=== PATIENT | female | born 1950 | race Caucasian/White ===

== ENCOUNTER 2017-07-24 12:58 | Emergency (ER) | payer MEDICAID, OTHER ==
[2017-07-24] MEDS ORDERED: Insulin Glargine,Human Rec. Analog 100 Units/ML 3 ML Pen SUBCUT ONE (13:41)
--- NOTE | 2017-07-24 14:07 | EDM.PDOC ---
<Juan Miguel Kelly - Last Filed: 07/24/17 14:02> ED HPI GENERAL MEDICAL PROBLEM - General Chief Complaint: Diabetic Complaint Stated Complaint: PT WOULD LIKE TO BE CHECK Time Seen by Provider: 07/24/17 13:45 Source of Information: Reports: Patient History Limitations: Reports: No Limitations - History of Present Illness INITIAL COMMENTS - FREE TEXT/NARRATIVE: HISTORY AND PHYSICAL: History of present illness: 66-year-old female that is a type II diabetic presents to the ER secondary to hyperglycemia. Patient is from [facility] and did not bring her diabetic medications with her on this trip to [place]. Her last dose of any type of diabetic medication was yesterday at noon when she took 10 units of Humalog. Typically she takes Humalog, Januvia, Lantus 20 units in the morning and night and also Victoza daily. She checked her blood sugars prior to coming in and they were 527. She notes a mild headache and some nausea but denies any abdominal pain, vomiting, chest, palpitations, shortness of breath, wheezing, cough. Her plan is to return to [place] tomorrow. She states that she is on Medicaid and unable to pay for any medications as prescribed to her today. Review of systems: As per history of present illness and below otherwise all systems reviewed and negative. Past medical history: As per history of present illness and as reviewed below otherwise noncontributory. Surgical history: As per history of present illness and as reviewed below otherwise noncontributory. Social history: No reported history of drug or alcohol abuse. Family history: As per history of present illness and as reviewed below otherwise noncontributory. Physical exam: HEENT: Atraumatic, normocephalic, pupils reactive, negative for conjunctival pallor or scleral icterus, mucous membranes moist, throat clear, neck supple, nontender, trachea midline. Lungs: Clear to auscultation, breath sounds equal bilaterally, chest nontender. Heart: S1S2, regular, negative for clicks, rubs, or JVD. Abdomen: Soft, nondistended, nontender. Negative for masses or hepatosplenomegaly. Negative for costovertebral tenderness. Extremities: Atraumatic, negative for cords or calf pain. Neurovascular unremarkable. Neuro: Awake, alert, oriented. Cranial nerves II through XII unremarkable. Cerebellum unremarkable. Motor and sensory unremarkable throughout. Exam nonfocal. Diagnostics: Patient declined a workup Therapeutics: The adaptive physical educator was contacted and did provide the patient with Victoza, Januvia and Humalog samples. Impression: #1. Hyperglycemia secondary to not having diabetic medications Plan: #1. Patient was given samples as noted above from the adaptive physical educator. She will return to [place], [place] tomorrow and follow-up with her primary care provider. Definitive disposition and diagnosis as appropriate pending reevaluation and review of above. Headache Pain Score (Numeric/FACES): 4 - Related Data Allergies Allergy/AdvReac Type Severity Reaction Status Date / Time amoxicillin [From Augmentin] Allergy Cannot Verified 07/24/17 13:36 Remember clavulanic acid Allergy Cannot Verified 07/24/17 13:36 [From Augmentin] Remember IV Dye Allergy Cannot Uncoded 07/24/17 13:36 Remember Past Medical History Endocrine/Metabolic History: Reports: Diabetes, Type II Social & Family History - Tobacco Use Smoking Status *Q: Never Smoker Second Hand Smoke Exposure: No - Caffeine Use Caffeine Use: Reports: Coffee - Recreational Drug Use Recreational Drug Use: No ED ROS GENERAL - Review of Systems Review Of Systems: ROS reveals no pertinent complaints other than HPI. ED EXAM GENERAL NO PERIP PULSE - Physical Exam Exam: See Below Text/Narrative:: See dictation Course - Vital Signs Last Recorded V/S: Last Vital Signs Temp 36.8 C 07/24/17 13:37 Pulse 91 07/24/17 13:37 Resp 14 07/24/17 13:37 BP 141/51 H 07/24/17 13:37 Pulse Ox 93 L 07/24/17 13:37 - Orders/Labs/Meds Meds: Medications Discontinued Medications Generic Name Dose Route Start Last Admin Trade Name Freq PRN Reason Stop Dose Admin Insulin Glargine 20 units 07/24/17 13:41 Lantus Solostar SUBCUT 07/24/17 13:42 ONETIME ONE Departure - Departure Time of Disposition: 14:10 Disposition: Home, Self-Care 01 Clinical Impression: Hyperglycemia - Discharge Information Instructions: Hyperglycemia, [id number] Referrals: PCP,None [Primary Care Provider] - Forms: ED Department Discharge Care Plan Goals: The following information is given to patients seen in the emergency department who are being discharged to home. This information is to outline your options for follow-up care. We provide all patients seen in our emergency department with a follow-up referral. The need for follow-up, as well as the timing and circumstances, are variable depending upon the specifics of your emergency department visit. If you don't have a primary care physician on staff, we will provide you with a referral. We always advise you to contact your personal physician following an emergency department visit to inform them of the circumstance of the visit and for follow-up with them and/or the need for any referrals to a consulting specialist. The emergency department will also refer you to a specialist when appropriate. This referral assures that you have the opportunity for follow-up care with a specialist. All of these measure are taken in an effort to provide you with optimal care, which includes your follow-up. Under all circumstances we always encourage you to contact your private physician who remains a resource for coordinating your care. When calling for follow-up care, please make the office aware that this follow-up is from your recent emergency room visit. If for any reason you are refused follow-up, please contact the [facility] Emergency Department at and asked to speak to the emergency department charge nurse. Patient will follow up with her PCP when she returns to [place], [place] tomorrow. <Adriana Quiñones - Last Filed: 07/24/17 14:10> ED HPI GENERAL MEDICAL PROBLEM - History of Present Illness INITIAL COMMENTS - FREE TEXT/NARRATIVE: This is Dr. Quiñones dictating an addendum note as a supervising physician on this case. I agree with history of physical as above and the patient is very nontoxic appearing. She states to me that she knows that her blood sugars elevated and that she would prefer to address this on her own she has the tools to do so. She is aware of our concerns of the elevation of her blood sugar and I have offered her a workup for that which she absolutely declines. She says that she can get her meds and on those she can adjust everything herself. She is aware that she can return at any point and aware that she needs to have follow-up with her provider at home ED ROS GENERAL - Review of Systems Review Of Systems: ROS reveals no pertinent complaints other than HPI. Departure - Departure Condition: Good
== END 2017-07-24 14:22 | disposition home or self-care (01) ==
LOC: MW.ED 12:58
DX: E11.65 Type 2 diabetes mellitus with hyperglycemia (principal); Z88.1 Allergy status to other antibiotic agents; Z91.041 Radiographic dye allergy status; Z79.84 Long term (current) use of oral hypoglycemic drugs
CPT/HCPCS: 99281; 99282